=== PATIENT | female | born 1955 | race Asian ===

== ENCOUNTER 2017-03-29 06:15 | Day surgery (SDC) | payer BC ==
[~2017-03-29] VITALS: Ht 154.9 cm; Wt 57.5 kg
[2017-03-29 06:57] VITALS: Ht 154.9 cm; Wt 57.5 kg
[2017-03-29] MEDS ORDERED: METF500T4 PO (07:10)
[2017-03-29] MEDS ORDERED: atenolol (07:10)
[2017-03-29] MEDS ORDERED: multivitamin (07:10)
[2017-03-29 07:24] VITALS: BP 141/84; PULSE 71; RESP 12
[2017-03-29] MEDS ORDERED: MIDAZOLAM 1 MG/ML 2 ML INJ ONE (08:53)
[2017-03-29] MEDS ORDERED: FENTAnyl 50 MCG/ML VIAL ONE (08:53)
[2017-03-29 09:14] VITALS: BP 118/74; PULSE 60; RESP 14
--- NOTE | 2017-04-03 05:45 | GILP ---
DATE OF PROCEDURE: PROCEDURE PERFORMED: Colonoscopy. SURGEON: Dr. Jaimes. PREOPERATIVE DIAGNOSIS: Screening colonoscopy. POSTOPERATIVE DIAGNOSES: 1. Colonoscopy all the way to the cecum. 2. Internal hemorrhoids. 3. No colon neoplasm was identified. INDICATION: Ms Qiana Cervantes is a 62-year-old female patient who was scheduled for screening colonoscopy. The procedure and possible complications were well explained to the patient. The patient understood and consented to the procedure. DESCRIPTION OF PROCEDURE: Under influence of fentanyl and Versed, the colonoscope was carefully introduced in the rectum and under direct vision, it was advanced all the way to the cecum. FINDINGS: The patient had internal hemorrhoids. No colon neoplasm was identified. She tolerated the procedure very well. There was no complication from the procedure. At the end of procedure, she was awake, with stable vital signs and she was discharged home in the care of her family. IMPRESSION: Please see postop diagnoses. PLAN: Next screening colonoscopy in 10 years. Dictated By: MD DAMIÁN Lozoya/deisy/kamron /Document#: [id number] CC: Kentrell Jaimes MD;*EndCC*
== END 2017-03-29 10:02 | disposition home or self-care (01) ==
LOC: GIL 06:15
PROVIDERS: ATTEND Internal Medicine Gastroenterology
DX: Z12.11 Encounter for screening for malignant neoplasm of colon (principal); I10 Essential (primary) hypertension; E11.9 Type 2 diabetes mellitus without complications
CPT/HCPCS: 45378; 82962; J2250; J3010; Z7610